=== PATIENT | female | born 1935 | race Caucasian/White ===

== ENCOUNTER 2017-02-11 10:55 | Inpatient (IN) | payer MEDICARE, MEDICAID ==
[~2017-02-11] VITALS: Ht 149.9 cm; Wt 104.5 kg
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
--- NOTE | ~2017-02-11 | HP ---
PATIENT'S NAME: CORDELL CANTU [facility] AGE: 82 Y [address] ROOM: [place] [address] LOCATION: GICU ADMIT DATE: 02/11/2017 History & Physical DISCHARGE DATE: FAMILY PHYSICIAN: PHYSICIAN, UNKNOWN ATTENDING PHYSICIAN: ARTEMIO CAAL DATE OF SERVICE: CHIEF COMPLAINT: Shortness of breath. HISTORY OF PRESENT ILLNESS: An 82-year-old very pleasant lady with past medical history of coronary artery disease, history of congestive heart failure with reduced ejection fraction, critical aortic stenosis with aortic valvuloplasty done at [facility] on 3-4 days ago, diabetes mellitus, chronic respiratory failure, chronic kidney disease stage IV, presented to [facility] from nursing facility where she presented with shortness of breath. Diagnosis of acute pulmonary edema was made. She was initially started on noninvasive ventilation and was given Lasix. After given Lasix, her symptoms improved and she arrived here in our ICU. On my encounter, she is saying that she does not have any symptoms right now. She said she could not breathe this morning and she was also having chest pain and headache, but she is not having any of those right now. Does not have any abdominal pain, any burning, or urination, but did endorse having leg swelling forever. She also complained of some headache which was this morning but is resolving now. She did endorse having PND, orthopnea, as well as leg swelling. REVIEW OF SYSTEMS: All other systems reviewed were negative except what is mentioned in the HPI. ALLERGIES: THE PATIENT STATES SHE IS ALLERGIC TO ASPIRIN WELL PENICILLIN THAT GIVE HER THROAT SWELLING. PAST MEDICAL HISTORY: 1. Coronary artery disease. 2. Heart failure with reduced ejection fraction. 3. Chronic hypoxic respiratory failure. 4. Aortic stenosis status post valvuloplasty 3 days ago. 5. Chronic kidney disease stage IV. 6. Type 2 diabetes mellitus. MEDICATIONS: Being reconciled right now. PATIENT'S NAME: CORDELL CANTU [facility] AGE: 82 Y [address] ROOM: [address] [place] [id number] LOCATION: GICU ADMIT DATE: 02/11/2017 History & Physical DISCHARGE DATE: FAMILY PHYSICIAN: PHYSICIAN, UNKNOWN ATTENDING PHYSICIAN: ARTEMIO CAAL FAMILY HISTORY: Family history significant for heart problems in brother. SOCIAL HISTORY: She quit smoking 15-20 years ago. PHYSICAL EXAMINATION: VITAL SIGNS: Blood pressure 90/67, 65, afebrile, 16, 95% on 2 L. GENERAL: No acute distress. Alert and oriented x3. HEENT: Head: Atraumatic, normocephalic. Eyes: Nonicteric. No pallor. Oropharynx: Absent dentition. Moist mucous membranes. CARDIOVASCULAR: S1, S2. Systolic ejection murmur radiating to the carotids. ABDOMEN: Soft, nontender, nondistended. Bowel sounds present. EXTREMITIES: +3 extremity edema. MUSCULOSKELETAL: No muscle tenderness or joint swelling noted. PSYCH: Normal affect, mood, and speech. NEURO: Cranial nerves 2 through 12 intact. No motor or sensory deficit noted. LABORATORY DATA: Lab work from outside facility showed sodium was 141, potassium 4.6, creatinine was 2.6, BUN 46, hemoglobin of 9.1, and WBC count was 8.7. Per verbal report, the EKG at the outside facility did show new ST depressions in the lateral leads and troponins well elevated at 2.95. ASSESSMENT AND PLAN: 1. Acute hypoxic respiratory failure on chronic hypoxic respiratory failure. 2. Non-ST segment elevation myocardial infarction. 3. Heart failure with reduced ejection fraction, acute exacerbation. Critical aortic stenosis, status post valvuloplasty. 4. Acute kidney insufficiency on chronic kidney disease, stage IV. 5. Type 2 diabetes mellitus. 6. Chronic hypoxic respiratory failure. At this point, we are going to monitor her. We are going to repeat labs. Chest x-ray has been repeated and does not show any significant pulmonary edema at this point. We will have our cardiology's come, see, and evaluate this patient. We will obtain echocardiography today. We will put her on sliding scale insulin for diabetes. Regarding her chronic kidney disease, I think an acute kidney injury was secondary to cardiorenal. We will monitor the labs now. We will also contact the [facility] and the network announcer who did the valvuloplasty. We will consider recommendation of her network announcer and decide further about this patient. PATIENT'S NAME: CORDELL CANTU [facility] AGE: 82 Y [address] ROOM: [place] [address] LOCATION: [facility] ADMIT DATE: 02/11/2017 History & Physical DISCHARGE DATE: FAMILY PHYSICIAN: PHYSICIAN, LORA ATTENDING PHYSICIAN: ARTEMIO CAAL ARTEMIO CAAL MD SUREKHA/modl /[id number] D: [id number] T: [id number] HISTORY & PHYSICAL
--- NOTE | ~2017-02-11 | DS ---
PATIENT'S NAME: CORDELL CANTU [facility] AGE: 82 Y [address] ROOM: [facility] [place], [place] [address] LOCATION: GICU ADMIT DATE: 02/11/2017 Discharge Summary DISCHARGE DATE: 02/12/2017 FAMILY PHYSICIAN: Howard Holliday MD ATTENDING PHYSICIAN: Judie Carney SUMMARY DATE OF : 02/12/2017. FINAL DIAGNOSES: 1. Acute hypoxic respiratory failure. 2. Recent balloon aortic valvuloplasty. 3. Cardiogenic shock. 4. Acute systolic congestive heart failure. 5. Aortic stenosis status post recent balloon aortic valvuloplasty. 6. History of diabetes mellitus. 7. Chronic kidney disease. 8. Comfort cares. 9. Acute pulmonary edema. 10. NSTEMI REASON FOR ADMISSION: This is an 82-year-old female, with a history of coronary artery disease, history of systolic congestive heart failure with a reduced ejection fraction. The patient had critical aortic stenosis and is status post balloon aortic valvuloplasty done at [facility] 3-4 days ago. She also has a history of chronic respiratory failure and chronic kidney disease stage 4. The patient presented with shortness of breath, was found to have acute pulmonary edema. She was then transferred to [facility] for higher level of care. Please see Dr. Carney's admission H and P for further details. DIAGNOSTIC STUDIES: While at [facility], transthoracic echocardiogram was done that showed normal left ventricular contractility. The patient had severe aortic stenosis. Mild concentric left ventricular hypertrophy noted. Left ventricular ejection fraction was 40 due to mild diffuse hypokinesia involving all left ventricular segments, left ventricle globular. Technically, it was a difficult exam, severe aortic stenosis was noted, pleural effusion present. ABGs were done on admission, showed a pH that was normal; pCO2 was 53 and subsequently it was 56, pO2 133 and subsequently 69. Serial Accu-Cheks were done and were in the range of 206-240. Troponin I 7.66 on admission and subsequently was 6.81. ProBNP 21,427. Serial CBC showed normal white count; hemoglobin of 7.9 on admission, 7.6 subsequently; platelet count 123 on admission, 162 subsequently. A CMP showed normal electrolytes. Her kidney PATIENT'S NAME: CORDELL CANTU [facility] AGE: 82 Y [address] ROOM: [facility] [place], [place] [address] LOCATION: [facility] ADMIT DATE: 02/11/2017 Discharge Summary DISCHARGE DATE: 02/12/2017 FAMILY PHYSICIAN: Howard Holliday MD ATTENDING PHYSICIAN: Judie Carney A function tests showed a creatinine of 2.7 with a GFR of 17 on admission. Creatinine the next day was 3.1 with a GFR of 14. Liver function tests were normal. The patient was placed on a heparin drip that was monitored with PTT levels. Procalcitonin level 0.15 on admission, 0.16 subsequently. TSH 1.42. D-dimer was elevated at 2.05 on admission. Chest x-ray was done on admission for shortness of breath and showed hazy left basilar opacity consistent with infiltrate and atelectasis. Atherosclerotic and ectatic aorta was noted. Chest x-ray was later repeated for increased shortness of breath and showed mild vascular congestion with interstitial prominence. Left base opacity likely reflecting edema, atelectasis, or infiltrate was noted. HOSPITAL COURSE: This was an 82-year-old female, who had a history of coronary artery disease, heart failure with reduced ejection fraction, and chronic hypoxic respiratory failure. The patient had severe aortic stenosis and had a valvuloplasty done at [facility] a few days ago. The patient presented with increased shortness of breath. She has chronic kidney disease stage 4. She was evaluated at an outlying hospital, was found to have pulmonary edema. She was given Lasix per reviewed records. She was then transferred to [facility]. Dr. Carney admitted the patient. Her symptoms improved slightly. Her shortness of breath improved slightly with Lasix administration; however, she continued to have hypotension and cardiac enzymes were elevated. She was thought to have NSTEMI. Cardiology was consulted. A transthoracic echocardiogram was done and findings are as above. Dr. Carrasquillo followed up with the patient during this admission. Consideration was given to TAVR surgery. Discussion was done with the family. The patient was DNR/DNI on admission. ABG was done and findings are as above. The patient was placed on heparin protocol for NSTEMI. This was continued. The patient also had hypotension. She was started on Tyrell GTT to keep MAP greater than 65. She was placed on BiPAP p.r.n. However, on the evening of 02/11/2017, the patient developed increased shortness of breath. She also had continuing hypotension. She was started on vasopressin gtt for hypotension. She was also given albumin. On the morning of 02/12/2017, Dr. Saeed discussed the grim prognosis given the hypotension, anemia, and hypoxic respiratory failure. Discussion was carried out with the family. Discussion was also carried out with the patient. They opted for comfort cares. The patient was placed on comfort cares on the box tender of 02/12/2017. All medications and aggressive measures were discontinued. She was placed on comfort care pathway by Dr. Saeed. On the morning of 02/12/2017, even prior to the hospitalist team rounding, the patient . She was comfortable at the time of . I visited with the family at that point of time. The patient was on comfort cares at that point of time based on the patient and family wishes. Pastoral care was offered, but family refused. NORS contacted by nurse. We will make arrangements per family wishes. Autopsy discussed with family, but family refused. Time of 9:25 a.m. per nurse. Date of 02/12/2017. PATIENT'S NAME: CORDELL CANTU [facility] AGE: 82 Y [address] ROOM: [place] [address] LOCATION: [facility] ADMIT DATE: 02/11/2017 Discharge Summary DISCHARGE DATE: 02/12/2017 FAMILY PHYSICIAN: Howard Holliday MD ATTENDING PHYSICIAN: Judie Carney LITO SANTA MD MT/modl /[id number] d: 02/20/17 0131 t: 02/20/17 1406, DISCHARGE SUMMARY
--- NOTE | ~2017-02-11 | ECHO ---
Transthoracic Echocardiography Report (TTE) Demographics Patient Name CORDELL CANTU Date of Study 02/11/2017 Patient Number [id number] Visit Number [id number] Date of 1935 Room Number G6213 Gender Female Number Age 82 year(s) Referring Angelika Patel Sales Service Route Manager Huma Salazar RDCS, Physician RVT Physician Interpreting Neida Andrews Aircraft Instrument Tester Physician Supervising Ordering Angelika Patel MD/MLP Physician MD Nurse Stress Fire Patrol Conclusions Contractility Score Summary Normal Left Ventricular contractility was noted. Summary Technically difficult exam. The estimated left ventricular ejection fraction is 40% due to mild diffuse hypokinesia involving all LV segments..The left ventricle is globular. Mild concentric left ventricular hypertrophy. Restrictive LV pattern reveal increased LA pressures. The left atrium is severely dilated by LA volume index measurement. Moderate-severe mitral regurgitation by color Doppler. Mild calcification of the mitral valve. Moderate mitral annular calcification. The aortic valve is severely sclerotic. There is severe aortic stenosis by the Continuity Equation. The peak velocity is 4.27 m/s, the mean gradient is 47 mmHg, and the valve area based on the continuity equation is 0.34 cm2. Pleural effusion present. Procedure Type of Study TTE procedure:2D Echocardiogram. Procedure Date Date: 02/11/2017 Start: 03:01 PM Study Location: Inpatient Portable Technical Quality: Adequate visualization Indications:Chest pain. Appropriate Use Criteria: 9 Patient Status: STAT HR: 69 bpm BP: 95/57 mmHg M-Mode/2D Measurements LV Diastolic Dimension: 5.37 cm LV Systolic Dimension: 3.95 cm LV Septum Diastolic: 1.15 cm LV PW Diastolic: 1.14 cm AO Root Dimension: 3 cm Cardiac Output: 2.47 l/min LA Dimension: 4 cm LVOT: 1.8 cm LVOT VTI: 14.1 cm RV Base: 3.24 cm LV Stroke volume: 35.86 ml RV Length: 6.7 cm TAPSE: 1.7 cm TDI-S': 9.76 cm/s Doppler Measurements AV Peak Velocity: 4.27 m/s MV Peak E-Wave: 1.95 m/s AV Peak Gradient: 72.93 mmHg MV Peak A-Wave: 0.62 m/s AV Mean Gradient: 47 mmHg MV E/A Ratio: 3.16 LVOT Peak Velocity: 0.55 m/s MV P1/2t: 44 msec TR Gradient:13.4 mmHg PV Peak Velocity: 0.64 m/s Estimated RAP:15 mmHg PV Peak Gradient: 1.64 mmHg Estimated RVSP: 28 mmHg Estimated PASP: 28.4 mmHg E' Septal Velocity: 0.04 m/s A' Septal Velocity: 0.07 m/s E' Lateral Velocity: 0.1 m/s A' Lateral Velocity: 0.05 m/s Findings Left Ventricle The left ventricle is globular. Mild concentric left ventricular hypertrophy.LVEF:40% due to mild diffuse hypokinesia involving all the LV segments. Right Ventricle Mildly reduced right ventricular function. Left Atrium The left atrium is severely dilated by LA volume index measurement. Right Atrium Normal right atrial size. Mitral Valve Moderate-severe mitral regurgitation by color Doppler. Mild calcification of the mitral valve. Moderate mitral annular calcification. Aortic Valve The aortic valve is severely sclerotic. There is severe aortic stenosis by the Continuity Equation. The peak velocity is 4.27 m/s, the mean gradient is 47 mmHg, and the valve area based on the continuity equation is 0.34 cm2. Tricuspid Valve Trivial tricuspid regurgitation by color Doppler. Pulmonic Valve Normal pulmonic valve structure and function. Pericardial Effusion No evidence of pericardial effusion. Epicardial fat pad noted. Miscellaneous Visualized portions of the aortic root and ascending aorta appear normal in size. Pleural Effusion Pleural effusion present. Contractility Score LV regional wall motion:(0-Non visualized 1-Normal 2-Hypokinesis 3-Akinesis 4-Dyskinesis 5-Aneurysm) Signature dtt: Juliana Carrasquillo dtd: 02/11/17 1501 Physician Self Edit
[2017-02-11] MEDS ORDERED: ARTIFICIAL TEAR15 M5 OPHTH ×2 (13:49→14:02)
[2017-02-11] MEDS ORDERED: PRED FORTE 1%5 ML OPHTH (13:50)
[2017-02-11] MEDS ORDERED: ARTIFICIAL TEA3.5 G1 OPHTH ×2 (13:51→13:52)
[2017-02-11] MEDS ORDERED: ZYLOPRIM100 MG PO (13:52)
[2017-02-11] MEDS ORDERED: NEURONTIN300 MG PO (13:52)
[2017-02-11] MEDS ORDERED: DULOXETINE HCL60 MG PO (13:53)
[2017-02-11] MEDS ORDERED: COREG 3.1253.125 MG PO (13:53)
[2017-02-11] MEDS ORDERED: PLAVIX75 MG PO (13:53)
[2017-02-11] MEDS ORDERED: THERAGRAN-M1 TAB PO (13:54)
[2017-02-11] MEDS ORDERED: OXYCONTIN EXTEN20 MG PO (13:56)
[2017-02-11] MEDS ORDERED: NOVOLOG FL100 UNIT/1 SUB-Q (13:56)
[2017-02-11] MEDS ORDERED: PROTONIX40 MG PO (13:56)
[2017-02-11] MEDS ORDERED: PRAVACHOL40 MG PO (13:57)
[2017-02-11] MEDS ORDERED: LASIX40 MG PO ×2 (13:57→13:58)
[2017-02-11] MEDS ORDERED: GLUCOPHAGE500 MG PO (13:59)
[2017-02-11] MEDS ORDERED: VITAMIN D250000 UNIT PO (14:00)
[2017-02-11] MEDS ORDERED: ATROVENT I0.5 MG/2.5 INH (14:00)
[2017-02-11] MEDS ORDERED: OMEGA 3 FISH O1 EACH PO (14:01)
[2017-02-11] MEDS ORDERED: DULCOLAX10 MG R (14:02)
[2017-02-11] MEDS ORDERED: BIOFREEZE89 ML TOP (14:02)
[2017-02-11] MEDS ORDERED: MILK OF MA400 MG/5 M PO (14:03)
[2017-02-11] MEDS ORDERED: MIRALAX17 GM PO (14:03)
[2017-02-11] MEDS ORDERED: TYLENOL325 MG PO (14:04)
[2017-02-11] MEDS ORDERED: BACTROBAN15 GM TOP (14:04)
[2017-02-11] MEDS ORDERED: COLACE100 MG PO (14:05)
[2017-02-11] MEDS ORDERED: ALBUTEROL2.5 MG/3 M INH (14:05)
[2017-02-11 14:23] LABS: BASOPHIL % 0.1 %; EOSINOPHIL % 0.1 %; HEMATOCRIT 25.4 % (30.0-46.0); IMMATURE GRANULOCYTE % 0.6 %; LYMPHOCYTE # 1.1 K/uL (0.8-4.0); MCH 28.7 pg (27.0-34.0); MCHC 31.1 gm/dL (32.0-36.5); MCV 92.4 fl (83.0-98.0); MONOCYTE # 0.7 K/uL (0.0-1.0); MONOCYTE % 9.5 %; NEUTROPHIL # (ANC) 5.3 K/uL (1.8-7.8); NEUTROPHIL % 74.7 %; NRBC % 0 /100WBC (0-0.00); PLATELET COUNT 123 K/uL (150-450); RBC 2.75 M/uL (3.00-5.00); RDW-CV 15.5 % (11.9-14.6); WBC 7.1 K/uL (4.0-11.0)
[2017-02-11 14:25] LABS: HEMOGLOBIN 7.9 g/dL (10.0-15.0)
[2017-02-11 14:42] LABS: ANION GAP 11.5 (10.0-19.0); CALCIUM 8.7 mg/dL (8.5-10.5); CREATININE 2.7 mg/dL (0.5-1.1); POTASSIUM 4.5 mMol/L (3.7-5.1)
--- NOTE | 2017-02-11 17:07 | NUR ---
PATIENT ALERT, ORIENTED X3. OPENS EYES SPONTANEOUSLY AND TO VOICE. PUPILS NOT EQUAL. 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 L) PUPIL REGUALR AND REACTIVE. PATIENT'S SPEECH IS PRESSURE, CONVERSATIONALLY APPROPRIATE. PATIENT MOVES ALL 4 EXTREMITIES SPONTANEOUSLY AND TO COMMANDS. EQUAL STRENGTH THROUGHOUT. GENERALIZED WEAKNESS. PATIENT HAS BEEN DENIYING NUMBNESS, TINGLING, OR PAIN. DENIES ANY CHEST PAIN. PATIENT HAS BEEN IN SINUS RHYTHM, ST DEPRESSION NOTED. EKG AND ECHO AT BEDSIDE UPON ADMIT. MD AWARE OF RESULTS. HR 70-80S. SIGNIFICANT EDEMA THROUGHOUT. PROXIMAL PULSES PALPABLE, DISTAL PULSES DOPPLERED IN LOWER EXTREMITIES FOR VERIFICATION. HYPOTENSIVE, GUILHERME DRIP STARTED AT 1 MCG/KG/MIN TO KEEP MAP>65. AFEBRILE. O2 WEANED TO 2L NASAL CANNULA, SATS MID TO LOWER 90S. SPONT COUGH, BROWN THICK SECRETIONS. BOWEL SOUNDS PRESENT, NO BM. DIABETIC DIET. DEE INTACT, LOW URINE OUTPUT, MD AWARE. FOLLOW UP: CONTINUE OT MONITOR, CARDIAC ENZYMES AND EKG Q 6 HOURS
[2017-02-11 19:20] LABS: BICARBONATE 31.4 mmol/L (18.0-23.0); PCO2 53 mmHg (35-45); PO2 133 mmHg (80-90)
[2017-02-11 23:21] LABS: BICARBONATE 31.6 mmol/L (18.0-23.0); PCO2 56 mmHg (35-45)
[2017-02-11 23:24] LABS: PO2 69 mmHg (80-90)
[2017-02-12 03:27] LABS: BASOPHIL % 0.2 %; EOSINOPHIL # 0.1 K/uL (0.0-0.5); EOSINOPHIL % 0.6 %; HEMATOCRIT 24.8 % (30.0-46.0); IMMATURE GRANULOCYTE % 0.4 %; LYMPHOCYTE # 1.5 K/uL (0.8-4.0); LYMPHOCYTE % 16.1 %; MCV 94.3 fl (83.0-98.0); MONOCYTE # 1.1 K/uL (0.0-1.0); MONOCYTE % 11.8 %; NEUTROPHIL # (ANC) 6.7 K/uL (1.8-7.8); NEUTROPHIL % 70.9 %; NRBC % 0.2 /100WBC (0-0.00); RBC 2.63 M/uL (3.00-5.00); RDW-CV 15.6 % (11.9-14.6); WBC 9.4 K/uL (4.0-11.0)
[2017-02-12 03:29] LABS: HEMOGLOBIN 7.6 g/dL (10.0-15.0); MCH 28.9 pg (27.0-34.0); MCHC 30.6 gm/dL (32.0-36.5); PLATELET COUNT 162 K/uL (150-450)
[2017-02-12 03:40] LABS: ALBUMIN 2.9 gm/dL (3.5-5.0); CALCIUM 8.3 mg/dL (8.5-10.5); CREATININE 3.1 mg/dL (0.5-1.1); TOTAL BILIRUBIN 0.7 mg/dL (0.0-1.5); TOTAL PROTEIN 6.5 g/dL (6.0-8.4)
--- NOTE | 2017-02-12 06:53 | NUR ---
PT WITH NOTABLE SOB AND INCREASED WOB AT BEGINNING OF SHIFT, ORDER FOR BIPAP PRN OBTAINED AND PT IMPROVED. PT WOKE UP AT 2300 CONFUSED, DISORIENTED, AND COMBATIVE, REMOVING BIPAP. ABG OBTAINED TO CHECK CO2 LEVEL, ORDER FOR HALDOL OBTAINED FOR AGITATION. HALDOL GIVEN, ONCE PATIENT WAS CALM, BP DROPPED SIGNIFICANTLY, REQUIRING GUILHERME-SYNEPHERINE TO BE TITRATED UP TO MAX. PLEASE SEE [place] FOR SPECIFIC TIMES. VASOPRESSIN ORDER OBTAINED, STARTED AT MAX AND REMAINS AT THAT RATE. BP PERSISTENTLY LOW, HOSPITALIST TO SEE PATIENT, ORDER FOR 500 ML NS BOLUS. BP IMPROVEMENT FOR SHORT TIME BUT RETURNED TO HYPOTENSIVE STATE WITH MINIMAL URINE OUTPUT. DR. Qiunn CALLED AND UPDATED WITH PT STATUS, ORDERS OBTAINED FOR 25G ALBUMIN X2 DOSES AND LABS. DR. Quinn UPDATED AGAIN WHEN PRESSURES DROPPED DESPITE 2ND DOSE OF ALBUMIN INFUSING; ORDERS FOR 2 UNITS PRBCs, 2 MORE DOSES OF ALBUMIN, AND LEVOPHED. HOSPITALIST UPDATED WITH INFO, CAME TO SEE [id number] OF PATIENT TO DISCUSS COMFORT CARES. AFTER DISCUSSING WITH OTHER FAMILY MEMEBERS, [id number] (MPOA) MADE DECISION TO MAKE PATIENT COMFORT CARES. AVNI DACOSTA RN
--- NOTE | 2017-02-12 10:58 | NUR ---
no tx this am per family/rn....pt comfort
--- NOTE | 2017-02-12 11:20 | NUR ---
Patient left floor at 1117. Family left room at 1045. Chopra catheter removed, PIV x2 removed. Patient belongings with family. home notified.
== END 2017-02-12 14:30 | disposition expired ==
LOC: GICU 12:15
PROVIDERS: Internal Medicine; Internal Medicine Interventional Cardiology; ADMIT Internal Medicine
PROC: 3E033XZ Introduction of Vasopressor into Peripheral Vein, Percutaneous Approach (ICD-10-PCS; principal; 2017-02-11)
DX: I13.0 Hypertensive heart and chronic kidney disease with heart failure and stage 1 through stage 4 chronic kidney disease, or unspecified chronic kidney disease (principal); I21.4 Non-ST elevation (NSTEMI) myocardial infarction; I50.23 Acute on chronic systolic (congestive) heart failure; J96.21 Acute and chronic respiratory failure with hypoxia; N17.9 Acute kidney failure, unspecified; N18.4 Chronic kidney disease, stage 4 (severe); Z51.5 Encounter for palliative care; Z66 Do not resuscitate; J98.11 Atelectasis; I50.1 Left ventricular failure, unspecified; R57.0 Cardiogenic shock; I35.0 Nonrheumatic aortic (valve) stenosis; I25.10 Atherosclerotic heart disease of native coronary artery without angina pectoris; E11.22 Type 2 diabetes mellitus with diabetic chronic kidney disease; E11.40 Type 2 diabetes mellitus with diabetic neuropathy, unspecified; H91.92 Unspecified hearing loss, left ear; D64.9 Anemia, unspecified; K06.9 Disorder of gingiva and edentulous alveolar ridge, unspecified; R13.10 Dysphagia, unspecified; Z91.81 History of falling; Z90.49 Acquired absence of other specified parts of digestive tract; Z87.891 Personal history of nicotine dependence; Z98.41 Cataract extraction status, right eye; Z91.048 Other nonmedicinal substance allergy status; Z79.4 Long term (current) use of insulin; Z88.6 Allergy status to analgesic agent; Z98.42 Cataract extraction status, left eye; Z98.890 Other specified postprocedural states; Z79.02 Long term (current) use of antithrombotics/antiplatelets
CPT/HCPCS: J1630; J1644; J2270; J2370; J2405; J7030; J7040; J7050; J7060; P9047